=== PATIENT | male | born 1970 ===

== ENCOUNTER 2021-01-21 17:50 | Observation (INO) ==
[2021-01-21] MEDS ORDERED: Naloxone 0.4 MG/ML INJ IVP PRN (22:04)
[2021-01-21] MEDS ORDERED: *HR* Promethazine 25 MG/ML VIAL IM PRN (22:04)
[2021-01-21] MEDS ORDERED: Ondansetron 4 MG/2 ML VIAL IVP PRN (22:04)
[2021-01-21] MEDS ORDERED: Melatonin 3 MG TABLET PO PRN (22:04)
[2021-01-21] MEDS ORDERED: Acetaminophen 325 MG TABLET PO PRN (22:04)
[2021-01-21] MEDS ORDERED: Magnesium Sulfate 1 GM/102 ML PIGGYBACK IVPB ONE (22:30)
[2021-01-21] MEDS ORDERED: Racepinephrine Neb 0.5 ML VIAL IH ONE (22:31)
[2021-01-21] MEDS ORDERED: Dexamethasone Sodium Phos/PF 10 MG/ML VIAL IVP ONE (22:59)
[2021-01-21] MEDS ORDERED: Remdesivir 200 MG in 0.9 % Sodium Chloride 100 ML IVPB ONE (23:00)
[2021-01-22] MEDS ORDERED: Haloperidol Lactate 5 MG/ML VIAL IVP PRN (00:45)
[2021-01-22] MEDS ORDERED: Morphine Sulfate 2 MG/ML SYRINGE IVP PRN (00:45)
[2021-01-22] MEDS ORDERED: *HR* LORazepam 2 MG/ML VIAL IVP PRN (00:45)
[2021-01-22 01:25] LABS: Basophils % 0.3 %; Hematocrit 40.5 % (37.5-50.1); Hemoglobin 13.2 g/dL (12.9-16.9); Immature Granulocytes % 2.1 % (0-4); Lymphocytes # 0.6 K/mcL (0.6-4.6); Mean Corpuscular HGB Conc 32.6 g/dL (31.6-35.5); Mean Corpuscular Hemoglobin 35.3 pg (28.0-33.3); Mean Corpuscular Volume 108.3 fL (83.0-100.0); Mean Platelet Volume 10.7 fL (9.4-12.4); Monocytes # 0.4 K/mcL (0.0-1.3); Monocytes % 5.6 %; Platelet Count 185 K/mcL (140-400); Red Blood Count 3.74 M/mcL (4.19-5.50); Red Cell Distribution Width 13.6 % (11.5-14.5); White Blood Count 7.1 K/mcL (4.3-11.1)
[2021-01-22 01:33] LABS: INR 1.4; Prothrombin Time 15.7 Seconds (9.4-12.1)
[2021-01-22 01:52] LABS: Alanine Aminotransferase 40 Units/L (7-52); Albumin 3.1 g/dL (3.5-5.7); Alkaline Phosphatase 84 Units/L (34-104); Aspartate Amino Transferase 43 Units/L (13-39); BUN/Creatinine Ratio 15 (6-26); Bilirubin,Direct 0.1 mg/dL (0.0-0.2); Bilirubin,Indirect 0.3 mg/dL (0.0-1.0); Bilirubin,Total 0.4 mg/dL (0.3-1.0); Blood Urea Nitrogen 14 mg/dL (6-20); Calcium 8.2 mg/dL (8.6-10.3); Carbon Dioxide 31 mEq/L (23-29); Chloride 99 mEq/L (98-107); Glucose 149 mg/dL (70-105); Magnesium 1.6 mg/dL (1.6-2.6); Osmolality,Calculated 293 (280-300); Potassium 3.9 mEq/L (3.5-5.1); Sodium 140 mEq/L (136-145); Total Protein 6.9 g/dL (6.4-8.9); eGFR For African Americans > 60 (> 60); eGFR For Non-African Americans > 60 (> 60)
[2021-01-22 01:53] LABS: Albumin/Globulin Ratio 0.8 (1.1-2.2); C-Reactive Protein 247 mg/L (Less than 10); Globulin 3.8 g/dL (2.4-3.5); Lactate Dehydrogenase 287 Units/L (140-271)
[2021-01-22 02:03] LABS: Ferritin 451 ng/mL (20-250)
[2021-01-22] MEDS ORDERED: *HR* Enoxaparin 40 MG/0.4 ML SYRINGE SQ SCH (06:00)
[2021-01-22] MEDS: Dexamethasone Sodium Phos/PF 10 MG/ML VIAL IVP SCH ×2 (06:09→10:24)
[2021-01-22] MEDS ORDERED: Dexamethasone Sodium Phos/PF 10 MG/ML VIAL IVP SCH (09:00)
[2021-01-22] MEDS: *HR* LORazepam 2 MG/ML VIAL IVP PRN ×5 (14:22→21:30)
[2021-01-22] MEDS: Morphine Sulfate 2 MG/ML SYRINGE IVP PRN ×4 (14:22→18:48)
[2021-01-22] MEDS ORDERED: Atropine 1% Opth Drops 100 DROP/5 ML BOTTLE SL PRN (19:13)
[2021-01-22 19:48] VITALS: BP 93/39
[2021-01-22] MEDS ORDERED: Remdesivir 100 MG in 0.9 % Sodium Chloride 100 ML IVPB SCH (23:00)
[2021-01-23 00:39] VITALS: PULSE 103; TEMP 99.1; O2SAT 93
== END 2021-01-23 05:55 | disposition expired ==
LOC: 2NENU 19:35 → SUATTDRO 19:35 → INTOOBSV 19:35
PROVIDERS: ADMIT Internal Medicine; ATTEND Internal Medicine